=== PATIENT | male | born 1965 | race Hispanic/Latino ===

== ENCOUNTER 2022-07-06 04:14 | Emergency (ER) | payer BC ==
[~2022-07-06] VITALS: Ht 170.2 cm; Wt 107.0 kg
[2022-07-06] MEDS ORDERED: MORPHINE 4 MG SYG ONE (04:35)
[2022-07-06] MEDS ORDERED: MORPHINE 4 MG SYG IVP ONE ×2 (05:00→05:30)
[2022-07-06] MEDS ORDERED: PROPOFOL 10 MG/ML 20ML VIAL IV SCH (05:30)
[2022-07-06] MEDS ORDERED: ONDANSETRON 4MG INJ IVP ONE (05:30)
[2022-07-06] MEDS ORDERED: IBUP-2077 PO (06:00)
[2022-07-06 06:21] VITALS: BP 147/60
== END 2022-07-06 06:40 | disposition home or self-care (01) ==
LOC: EDH 04:14
DX: S43.004A Unspecified dislocation of right shoulder joint, initial encounter (principal); W01.0XXA Fall on same level from slipping, tripping and stumbling without subsequent striking against object, initial encounter; Y93.89 Activity, other specified; Y92.89 Other specified places as the place of occurrence of the external cause; Y99.8 Other external cause status
CPT/HCPCS: 99285; 23650; 96374; 96375; 73030 ×2; 96376; J2704; J2405; J2270 ×2